=== PATIENT | male | born 1960 ===

== ENCOUNTER 2017-11-25 15:50 | Emergency (ER) | payer OTHER ==
[~2017-11-25] VITALS: Ht 167.6 cm; Wt 108.9 kg
--- NOTE | 2017-11-25 15:58 | ER Report ---
History and Physical Time Seen By MD: 15:58 Hx. of Stated Complaint: pt c/o upper back pain that radiates into his left arm HPI/ROS CHIEF COMPLAINT: Intermittent numbness to the left arm HISTORY OF PRESENT ILLNESS: 57-year-old male patient presents to emergency room with complaint of intermittent numbness to the left arm. Patient states this been going on for the last 2 days. He is concerned this may be related to a heart attack. He states the clivus been going on more concerned he is had. Patient denies being short of breath, having chest pain. States he's had occasional twinges in the left pectoralis muscle. Patient states that he is not had a cough, fever. He states he is not currently taking any medication. Patient is a over the road assembler truck trailer. REVIEW OF SYSTEMS: Respiratory: As noted above Cardiovascular: No chest pain, no palpitations. Gastrointestinal: No vomiting, no abdominal pain. Musculoskeletal: As noted above. Allergies: Coded Allergies: No Known Drug Allergies (Unverified , 11/25/17) Home Meds Active Scripts Cyclobenzaprine Hcl (CYCLOBENZAPRINE HCL) 10 Mg Tablet, 10 MG PO TID Y for MUSCLE SPASMS, #20 TAB Prov:RIYA HAWKINS [facility] 11/25/17 Azithromycin 250 Mg Tab (AZITHROMYCIN 250 MG TAB) 250 Mg Tablet, 1 TAB PO QDAY, #4 TAB Take 2 tabs today and then 1 tab a day until gone. Prov:RIYA HAWKINS [facility] 11/25/17 Past Medical/Surgical History Patient denies having a pertinent medical history. Patient has a surgical history of a right inguinal hernia. Reviewed Nurses Notes: Yes Constitutional Vital Sign - Last 24 Hours 11/25/17 11/25/17 11/25/17 11/25/17 15:55 16:00 17:00 17:30 Temp 97.8 Pulse 67 67 75 Resp 20 13 50 B/P (MAP) 162/108 149/128 (135) 130/85 (100) Pulse Ox 95 95 95 95 O2 Delivery Room Air Physical Exam General Appearance: The patient is alert, has no immediate need for airway protection and no current signs of toxicity. Respiratory: Chest is non tender, lungs are clear to auscultation. Cardiac: regular rate and rhythm Gastrointestinal: Abdomen is soft and non tender, no masses, bowel sounds normal. Musculoskeletal: Neck: Neck is supple and non tender. Extremities have full range of motion and are non tender. Skin: No rashes or lesions. DIFFERENTIAL DIAGNOSIS: After history and physical exam differential diagnosis was considered for chest pain including but not limited to myocardial ischemia, pericarditis pulmonary embolus, chest wall pain, pleural inflammation and pulmonary infectious causes. Medical Decision Making Data Points Result Diagram: 11/25/17 1618 11/25/17 1618 Laboratory Hematology Test 11/25/17 16:18 Red Blood Count 6.05 M/uL (4.00-5.60) Mean Corpuscular Volume 86.3 fL (80.0-96.0) Mean Corpuscular Hemoglobin 28.3 pg (26.0-33.0) Mean Corpuscular Hemoglobin Concent 32.8 g/dL (32.0-36.0) Red Cell Distribution Width 14.2 % (11.5-14.5) Mean Platelet Volume 10.7 fL (7.2-11.1) Neutrophils (%) (Auto) 60.1 % (39.4-72.5) Lymphocytes (%) (Auto) 22.0 % (17.6-49.6) Monocytes (%) (Auto) 14.0 % (4.1-12.4) Eosinophils (%) (Auto) 3.0 % (0.4-6.7) Basophils (%) (Auto) 0.9 % (0.3-1.4) Nucleated RBC Relative Count (auto) 0.1 /100WBC Neutrophils # (Auto) 4.0 K/uL (2.0-7.4) Lymphocytes # (Auto) 1.5 K/uL (1.3-3.6) Monocytes # (Auto) 0.9 K/uL (0.3-1.0) Eosinophils # (Auto) 0.2 K/uL (0.0-0.5) Basophils # (Auto) 0.1 K/uL (0.0-0.1) Nucleated RBC Absolute Count (auto) 0.01 K/uL Sodium Level 137 mmol/L (137-145) Potassium Level 3.9 mmol/L (3.5-5.0) Chloride Level 101 mmol/L (98-107) Carbon Dioxide Level 27 mmol/L (22-30) Blood Urea Nitrogen 12 mg/dl (9-21) Creatinine 1.10 mg/dl (0.66-1.25) Glomerular Filtration Rate Calc > 60.0 Random Glucose 94 mg/dl (75-110) Calcium Level 9.1 mg/dl (8.4-10.2) Total Bilirubin 0.6 mg/dl (0.2-1.3) Aspartate Amino Transf (AST/SGOT) 25 U/L (0-35) Alanine Aminotransferase (ALT/SGPT) 45 U/L (0-56) Alkaline Phosphatase 77 U/L (0-126) Troponin I < 0.012 ng/ml Total Protein 7.6 gm/dl (6.3-8.2) Albumin 3.9 g/dl (3.5-5.0) Chemistry Test 11/25/17 16:18 White Blood Count 6.7 k/uL (4.5-11.0) Red Blood Count 6.05 M/uL (4.00-5.60) Hemoglobin 17.1 g/dL (14.0-18.0) Hematocrit 52.2 % (42.0-52.0) Mean Corpuscular Volume 86.3 fL (80.0-96.0) Mean Corpuscular Hemoglobin 28.3 pg (26.0-33.0) Mean Corpuscular Hemoglobin Concent 32.8 g/dL (32.0-36.0) Red Cell Distribution Width 14.2 % (11.5-14.5) Platelet Count 155 K/uL (150-450) Mean Platelet Volume 10.7 fL (7.2-11.1) Neutrophils (%) (Auto) 60.1 % (39.4-72.5) Lymphocytes (%) (Auto) 22.0 % (17.6-49.6) Monocytes (%) (Auto) 14.0 % (4.1-12.4) Eosinophils (%) (Auto) 3.0 % (0.4-6.7) Basophils (%) (Auto) 0.9 % (0.3-1.4) Nucleated RBC Relative Count (auto) 0.1 /100WBC Neutrophils # (Auto) 4.0 K/uL (2.0-7.4) Lymphocytes # (Auto) 1.5 K/uL (1.3-3.6) Monocytes # (Auto) 0.9 K/uL (0.3-1.0) Eosinophils # (Auto) 0.2 K/uL (0.0-0.5) Basophils # (Auto) 0.1 K/uL (0.0-0.1) Nucleated RBC Absolute Count (auto) 0.01 K/uL Glomerular Filtration Rate Calc > 60.0 Calcium Level 9.1 mg/dl (8.4-10.2) Total Bilirubin 0.6 mg/dl (0.2-1.3) Aspartate Amino Transf (AST/SGOT) 25 U/L (0-35) Alanine Aminotransferase (ALT/SGPT) 45 U/L (0-56) Alkaline Phosphatase 77 U/L (0-126) Troponin I < 0.012 ng/ml Total Protein 7.6 gm/dl (6.3-8.2) Albumin 3.9 g/dl (3.5-5.0) EKG/Imaging EKG Interpretation 12 lead EKG: Rhythm: Sinus rhythm with PACs, ventricular rate of 63 bpm [place]: normal QRS: normal ST segments: Nonspecific T-wave abnormality Imaging EXAMINATION: Chest radiographs 2 views HISTORY: Chest pain. COMPARISON: None. FINDINGS: PA and lateral views of the chest are submitted. Lines/tubes: None. Lungs/pleura: There is bronchial wall thickening centrally and ill-defined opacity in the right medial lung base. No pleural effusion. Heart: Negative. Mediastinum: Negative. Bony structures/body wall: Negative. IMPRESSION: Findings suspicious for acute bronchitis with superimposed right basilar pneumonia. Radiographic follow-up to resolution is recommended to ensure there is not an underlying mass. Report Dictated By: Raisa Delarosa MD at 11/25/2017 4:44 PM Report E-Signed By: Raisa Delarosa MD at 11/25/2017 4:45 PM ED Course/Re-evaluation ED Course Patient is admitted and examined, history and physical were obtained. Differential diagnoses were considered. On examination lungs are clear, heart is regular. Patient had no obvious tenderness to palpation. I do believe this is likely muscle spasms which are causing compression of the nurses which is causing intermittent numbness the patient is complaining of. A CBC, CMP, troponin, EKG, chest x-ray were done. CBC, CMP, troponin were unremarkable. The EKG showed a sinus rhythm with PACs. Chest x-ray showed a possible bronchitis with a bronchial pneumonia. I discussed the findings with the patient. We will go ahead and discharge patient home. We will treat him with azithromycin for pneumonia we'll also treat the muscle spasms with Flexeril. Discusses the patient who verbalized understanding and agreement with plan. Decision to Disposition Date: Nov 25, 2017 Decision to Disposition Time: 17:20 Depart Departure Latest Vital Signs Vital Signs Date Time Temp Pulse Resp B/P (MAP) Pulse Ox O2 Delivery O2 Flow Rate FiO2 11/25/17 17:30 50 95 11/25/17 17:00 75 130/85 (100) 11/25/17 15:55 97.8 Room Air Impression: Primary Impression: Pneumonia Additional Impression: Muscle spasm Condition: Improved Disposition: HOME OR SELF-CARE New Scripts Cyclobenzaprine Hcl (CYCLOBENZAPRINE HCL) 10 Mg Tablet 10 MG PO TID Y for MUSCLE SPASMS, #20 TAB Prov: RIYA HAWKINS 11/25/17 Azithromycin 250 Mg Tab (AZITHROMYCIN 250 MG TAB) 250 Mg Tablet 1 TAB PO QDAY, #4 TAB Take 2 tabs today and then 1 tab a day until gone. Prov: RIYA HAWKINS 11/25/17 Patient Instructions: Community Acquired Pneumonia (ED) Additional Instructions: Increase fluid intake. Get plenty of rest. Follow up with your primary care provider in the next 2 weeks. Take Tylenol or Ibuprofen as needed for pain. Return to ER or Urgent Care if condition worsens while traveling. Continue with normal activity levels. Problem Qualifiers Primary Impression: Pneumonia Pneumonia type: due to unspecified organism Laterality: right Lung location : middle lobe of lung Qualified Codes: J18.1 - Lobar pneumonia, unspecified organism RIYA HAWKINS [facility] Nov 25, 2017 15:58
[2017-11-25] MEDS ORDERED: ASPIRIN 81 MG CHEW PO ONE (16:10)
[2017-11-25 16:28] LABS: PLATELET COUNT, AUTOMATED 155 K/uL (150-450)
--- NOTE | 2017-11-25 16:50 | RADIOLOGY IMAGING REPORT ---
FACILITY: [facility] - [place] PATIENT NAME: Rafaela Aguirre : 1960 MR: [id number] V: [id number] EXAM DATE: ORDERING PHYSICIAN: RIYA HAWKINS TECHNOLOGIST: Location: [facility] [place] Patient: Rafaela Aguirre : 1960 Visit/Account:[id number] Date of Sevice: 11/25/2017 EXAMINATION: Chest radiographs 2 views HISTORY: Chest pain. COMPARISON: None. FINDINGS: PA and lateral views of the chest are submitted. Lines/tubes: None. Lungs/pleura: There is bronchial wall thickening centrally and ill-defined opacity in the right medi al lung base. No pleural effusion. Heart: Negative. Mediastinum: Negative. Bony structures/body wall: Negative. IMPRESSION: Findings suspicious for acute bronchitis with superimposed right basilar pneumonia. Radiographic foll ow-up to resolution is recommended to ensure there is not an underlying mass. Report Dictated By: Raisa Delarosa MD at 11/25/2017 4:44 PM Report E-Signed By: Raisa Delarosa MD at 11/25/2017 4:45 PM WSN:[id number]
[2017-11-25 17:00] VITALS: BP 130/85
[2017-11-25] MEDS ORDERED: AZIT-18 PO (17:37)
[2017-11-25] MEDS ORDERED: CYCL10TA29 PO (17:37)
[2017-11-25] MEDS ORDERED: CYCLOBENZAPRINE HCL 10 MG TH PO ONE (17:40)
[2017-11-25] MEDS ORDERED: AZITHROMYCIN 250 MG TAB TH PO ONE (17:40)
--- NOTE | 2017-11-26 07:29 | EKG ---
FACILITY: [facility] PATIENT NAME: TSERING URIOSTEGUI : [id number] MR: [id number] V: [id number] EXAM DATE: ORDERING PHYSICIAN: RIYA HAWKINS TECHNOLOGIST: SAMREEN Rodríguez Reason : CHEST PAIN Blood Pressure : / mmHG Vent. Rate : 063 BPM Atrial Rate : 063 BPM P-R Int : 134 ms QRS Dur : 086 ms QT Int : 390 ms P-R-T Axes : 055 003 104 degrees QTc Int : 399 ms Sinus rhythm with Possible premature atrial complexes with aberrant conduction Nonspecific T wave abnormality Abnormal ECG Confirmed by YI WALDROP ([id number]) on 11/26/2017 11:54:05 AM Referred By: RIYA Confirmed By:YI WALDROP
== END 2017-11-25 17:40 | disposition home or self-care (01) ==
LOC: ER 16:01
DX: J18.1 Lobar pneumonia, unspecified organism (principal); M62.830 Muscle spasm of back
CPT/HCPCS: 71046; 82040; 82247; 82310; 82374; 82435; 82565; 82947; 84075; 84132; 84155; 84295; 84450; 84460; 84484; 84520; 85025; 93005; 99284